=== PATIENT | male | born 1945 | race Caucasian/White ===

== ENCOUNTER 2018-06-19 14:34 | Inpatient (IN) | payer MEDICARE, OTHER ==
--- NOTE | 2018-06-19 15:12 | C.PDOC ---
History Of Present Illness 72 y/o male with PMHx of HTN, CVA, hypothyroidism, and myasthenia gravis, presents to the ED complaining of dizziness onset when waking up today. Patient reports feeling as if the room was spinning, and notes around 10:00am he lost h is balance and fell at home. Patient is now complaining of right rib pain. He denies any LOC, chest pain, SOB, palpitations, headache, visual changes, change in speech, focal weakness, numbness, or other injury. States he had a similar episode of room-spinning 2 days ago which resolved on its own. (+) blood thinner use, takes 81mg aspirin daily. Time Seen by Provider: 06/19/18 15:11 Chief Complaint (Nursing): Dizziness/Lightheaded History Per: Patient History/Exam Limitations: no limitations Onset/Duration Of Symptoms: Hrs Current Symptoms Are (Timing): Still Present Activity At Onset Of Symptoms: Standing Possible Causative Factor(s): Vertigo Fall Associated With With Symptoms: Yes, Positive Injury (right ribs) Past Medical History Reviewed: Historical Data, Nursing Documentation, Vital Signs Vital Signs: Last Vital Signs Temp 98 F 06/19/18 15:01 Pulse 115 H 06/19/18 15:01 Resp 22 06/19/18 15:01 BP 167/132 H 06/19/18 15:01 Pulse Ox 98 06/19/18 15:01 - Medical History PMH: CVA, HTN, Hypothyroidism Other PMH: Myasthenia Gravis Family History: States: No Known Family Hx - Social History Hx Tobacco Use: No Hx Alcohol Use: No Hx Substance Use: No Review Of Systems Constitutional: Negative for: Fever, Chills, Sweats Cardiovascular: Positive for: Other (Right rib pain). Negative for: Chest Pain, Palpitations Respiratory: Negative for: Shortness of Breath Gastrointestinal: Negative for: Nausea, Vomiting Musculoskeletal: Negative for: Neck Pain, Back Pain Skin: Negative for: Lesions, Bruising Neurological: Positive for: Dizziness (room-spinning). Negative for: Weakness, Numbness, Confusion, Altered Mental Status, Headache Physical Exam - Physical Exam Appears: Non-toxic, No Acute Distress Skin: Warm, Dry Head: Normacephalic Eye(s): bilateral: PERRL, EOMI, Other (Horizontal nystagmus, which fatigues) Ear(s): Bilateral: Normal Nose: Normal, No Septal Hematoma Oral Mucosa: Moist Tongue: Normal Appearing, No Laceration Lips: No Contusion Throat: Normal, No Erythema, No Exudate Neck: Trachea Midline, Supple, Other (No meningeal signs- negative kernig's and brudzinskis) Chest: Symmetrical, Tenderness (to right lateral ribs) Cardiovascular: Rhythm Regular, Other (No rub) Respiratory: No Rales, No Rhonchi, No Wheezing Gastrointestinal/Abdominal: Soft, Tenderness (over the RUQ), No Guarding, No Rebound Back: Normal Inspection, No CVA Tenderness, No Vertebral Tenderness Extremity: Bilateral: Atraumatic, Normal Color And Temperature Pulses: Left Dorsalis Pedis: Normal, Right Dorsalis Pedis: Normal Neurological/Psych: Oriented x3, Normal Speech, Normal Cognition, Normal Cranial Nerves, No Cerebellar Signs, Normal Motor, Normal Sensation, Other (Normal [id number]) Gait: Steady Extremity: Right: No Drift, Left: No Drift, Upper: No Drift, Lower: No Drift ED Course And Treatment - Laboratory Results Result Diagrams: 06/19/18 16:52 06/19/18 16:52 O2 Sat by Pulse Oximetry: 98 (RA) Pulse Ox Interpretation: Normal Medical Decision Making Medical Decision Making: Impression: 72 y/o M presents with c/o dizziness, x2d intermittently. No fall or trauma. No severed MOSQUEDA worst of life. No weakness or slurred speech. Pt notes vertigo with fall. On exam, normal cerebellar exam, BPV like exam: Horizontal nystagmus w/ fatigue. No indication of central vertigo at this time. Will seek CT given fall and R sided chest pain after fall. Will also seek NIF given pt has hx of MG. Pt notes MG is well controlled, and he denies any SOB or weakness at this time. Will continue to monitor. Plan: EKG Blood work CT C-spine CT Head CT Chest/Abd/Pelvis EKG: Sinus tachycardia at 116 bpm, no STEMI, PVCs CT Head: 1. There is generalized parenchymal atrophy noted as demonstrated by symmetrical dilatation of ventricles and sulci. 2. Chronic periventricular and subcortical microvascular disease is seen. 3. Left thalamic lacunar infarct is noted. 4. Mild forehead swelling is seen. 5. No acute intracranial pathology. CT C-spine: 1. No fracture or spondylolisthesis. 2. Straightening of cervical lordosis is seen, suggesting muscular spasm. 3. Multilevel spondylosis. 4. No fracture. CT Chest/Abd/Pelvis: 1. No evidence of acute pathology. Specifically, no evidence of rib fracture. 2. 3 mm subpleural nodule is present in the right upper lobe. Some additional tiny subpleural nodules present in the right lung. Several patchy opacities present in the left lung base that may represent posttraumatic atelectasis 3. The liver is enlarged especially the caudate lobe, markedly nodular and lobulated consistent with cirrhosis. Diffuse fatty infiltration with areas of fatty sparing. Vague area of hyperenhancement in comparison with remaining hepatic parenchyma and anterior segment of right hepatic lobe laterally which may represent vascular shunts. No definitive mass. Consider followup with MRI if clinically warranted. 4. Splenomegaly. 5. Several enlarged lymph nodes present, the largest measures 1.2 CM located in the epigastric region. Mild mesenteric infiltration present. 6. Prostate gland is moderately enlarged and contains calcifications. Please correlate with PSA levels. 7. Small umbilical hernia containing a small amount of fat and fluid. Small fat containing left inguinal hernia. 8. Numerous venous varicosities present within the abdomen. 2104 labs largely unremarkable Recurrent vertigo, lungs CTA: Per RN and Respiratory: No NIF machine available. Given Dizziness, moderately improved as well as no NIF measurement in ED will place patient in TELE. No indication for ICU at this time: pt states normal strength and is compliant with his MG meds at home per pt. On repeat exam he remains in NAD. Disposition - Disposition Disposition Time: 21:05 Condition: GOOD Forms: [facility] (Icelandic) - Clinical Impression Clinical Impression: Dizziness - Scribe Statement The provider has reviewed the documentation as recorded by the Scribe (Ijeoma Lugo) Provider Attestation: All medical record entries made by the Scribe were at my direction and personally dictated by me. I have reviewed the chart and agree that the record accurately reflects my personal performance of the history, physical exam, medical decision making, and the department course for this patient. I have also personally directed, reviewed, and agree with the discharge instructions and disposition.
[2018-06-19 17:14] LABS: BASO # 0.1 K/uL (0.0-0.2); BASO % 0.8 % (0.0-2.0); EOS # 0.1 K/uL (0.0-0.7); EOS % 1.4 % (0.0-4.0); HEMOGLOBIN 16.1 g/dL (12.0-18.0); LYMPH # 1.3 K/uL (1.0-4.3); LYMPH % 17.3 % (20.0-40.0); MEAN CELL VOLUME 76.4 fL (80.0-94.0); MEAN CORPUSCULAR HEMOGLOBIN 24.8 pg (27.0-31.0); MEAN CORPUSCULAR HGB CONC 32.5 g/dL (33.0-37.0); MEAN PLATELET VOLUME 10.7 fL (7.2-11.7); MONO # 0.7 K/uL (0.0-0.8); MONO % 9.6 % (0.0-10.0); NEUT # 5.2 K/uL (1.8-7.0); NEUT % 70.9 % (50.0-75.0); NRBC % 0.2 % (0.0-2.0); RBC 6.5 Mil/uL (4.40-5.90); WHITE BLOOD COUNT 7.4 K/uL (4.8-10.8)
[2018-06-19 17:17] LABS: ALB/GLOB RATIO 0.9 (1.0-2.1); ALBUMIN 3.8 g/dL (3.5-5.0); ALT/SGPT 37 U/L (21-72); AST/SGOT 44 U/L (17-59); BLOOD UREA NITROGEN 15 mg/dL (9-20); CALCIUM 9.1 mg/dl (8.6-10.4); GFR NON-AFRICAN AMERICAN > 60
[2018-06-19 17:22] LABS: INR 1.2; PROTHROMBIN TIME 13.2 SECONDS (9.7-12.2)
[2018-06-19 17:36] LABS: B-TYPE NATRIURETIC PEPTIDE 178 pg/mL (0-900)
[2018-06-19] MEDS ORDERED: Iodixanol 320 MG/ML 100 ML BOTTLE IV ONE (18:39)
[2018-06-19] MEDS ORDERED: Oxycodone/Acetaminophen 5/325 mg Tab PO ONE (19:20)
[2018-06-19] MEDS ORDERED: Sodium Chloride 0.9% 1,000 ML ONE (19:25)
[2018-06-19] MEDS: Sodium Chloride 0.9% 1,000 ML IV SCH (19:25)
[2018-06-19] MEDS ORDERED: Oxycodone/Acetaminophen 5/325 mg Tab ONE (19:25)
[2018-06-20] MEDS: Sodium Chloride 0.9% 1,000 ML IV SCH ×2 (01:02→13:51)
[2018-06-20] MEDS: Levothyroxine 50 MCG TAB PO SCH (07:04)
[2018-06-20] MEDS: Oxycodone/Acetaminophen 5/325 mg Tab PO PRN ×2 (07:04→14:06)
[2018-06-20 07:35] LABS: FREE T4 1.21 ng/dL (0.78-2.19)
[2018-06-20] MEDS: (Novolin R) Insulin Human Regular 100 units/ml vial SC SCH ×4 (08:44→21:57)
--- NOTE | 2018-06-20 11:55 | CP.PCM.HP ---
History of Present Illness - History of Present Illness History of Present Illness: pt came toed admited after he got up felt dizzy rested then got up fell on his r side chest wall hurts a lot Present on Admission - Present on Admission Any Indicators Present on Admission: No Review of Systems - Review of Systems Systems not reviewed;Unavailable: Acuity of Condition - Constitutional Constitutional: Excessive Sweating, Fatigue - EENT Eyes: As Per HPI Ears: As Per HPI Nose/Mouth/Throat: As Per HPI - Cardiovascular Cardiovascular: Lightheadedness - Respiratory Respiratory: Dyspnea on Exertion - Gastrointestinal Gastrointestinal: Nausea, Vomiting - Genitourinary Genitourinary: As Per HPI - Reproductive: Male Reproductive:Male: As Per HPI - Musculoskeletal Musculoskeletal: As Per HPI - Integumentary Integumentary: As Per HPI - Neurological Neurological: Dizziness, Syncope - Psychiatric Psychiatric: As Per HPI - Endocrine Endocrine: Polyuria Additional Comments: dm hypothyroid - Hematologic/Lymphatic Hematologic: As Per HPI Past Patient History - Past Medical History & Family History Past Medical History?: Yes - Past Social History Smoking Status: Never Smoked - CARDIAC Hx Hypertension: Yes - NEUROLOGICAL HX Cerebrovascular Accident: Yes - ENDOCRINE/METABOLIC Hx Hypothyroidism: Yes - MUSCULOSKELETAL/RHEUMATOLOGICAL Hx Falls: No - PSYCHIATRIC Hx Substance Use: No Meds Allergies/Adverse Reactions: Allergies Allergy/AdvReac Type Severity Reaction Status Date / Time No Known Allergies Allergy Verified 06/19/18 15:56 Physical Exam - Constitutional Appears: In Acute Distress - Head Exam Head Exam: ATRAUMATIC - Eye Exam Eye Exam: Normal appearance - ENT Exam ENT Exam: Mucous Membranes Moist - Neck Exam Neck exam: Positive for: Full Rom - Respiratory Exam Respiratory Exam: Decreased Breath Sounds Additional comments: tender chest wall - Cardiovascular Exam Cardiovascular Exam: REGULAR RHYTHM - GI/Abdominal Exam GI & Abdominal Exam: Normal Bowel Sounds - Rectal Exam Rectal Exam: Deferred - Extremities Exam Extremities exam: Positive for: normal inspection - Back Exam Back exam: NORMAL INSPECTION - Neurological Exam Neurological exam: Alert, Oriented x3 - Psychiatric Exam Psychiatric exam: Normal Mood - Skin Skin Exam: Normal Color Results - Vital Signs Recent Vital Signs: Last Vital Signs Temp 98.1 F 06/20/18 07:05 Pulse 90 06/20/18 07:45 Resp 18 06/20/18 07:05 BP 155/98 H 06/20/18 10:33 Pulse Ox 97 06/20/18 07:05 - Labs Result Diagrams: 06/19/18 16:52 06/19/18 16:52 Labs: Laboratory Results - last 24 hr 06/19/18 06/19/18 06/19/18 16:52 16:52 16:52 WBC 7.4 RBC 6.50 H Hgb 16.1 Hct 49.7 MCV 76.4 L MCH 24.8 L MCHC 32.5 L RDW 15.0 H Plt Count 157 MPV 10.7 Neut % (Auto) 70.9 Lymph % (Auto) 17.3 L Curry % (Auto) 9.6 Eos % (Auto) 1.4 Baso % (Auto) 0.8 Neut # (Auto) 5.2 Lymph # (Auto) 1.3 Curry # (Auto) 0.7 Eos # (Auto) 0.1 Baso # (Auto) 0.1 PT 13.2 H INR 1.2 APTT 34 Sodium 135 Potassium 4.4 Chloride 102 Carbon Dioxide 28 Anion Gap 10 BUN 15 Creatinine 0.7 L Est GFR ( Amer) > 60 Est GFR (Non-Af Amer) > 60 POC Glucose (mg/dL) Random Glucose 332 H Calcium 9.1 Magnesium 1.8 Total Bilirubin 1.0 AST 44 ALT 37 Alkaline Phosphatase 120 NT-Pro-B Natriuret Pep 178 Total Protein 8.1 Albumin 3.8 Globulin 4.3 H Albumin/Globulin Ratio 0.9 L 25-OH Vitamin D Total Free T4 TSH 3rd Generation 1.95 Blood Type Antibody Screen 06/19/18 06/20/18 06/20/18 16:52 06:02 06:51 WBC RBC Hgb Hct MCV MCH MCHC RDW Plt Count MPV Neut % (Auto) Lymph % (Auto) Curry % (Auto) Eos % (Auto) Baso % (Auto) Neut # (Auto) Lymph # (Auto) Curry # (Auto) Eos # (Auto) Baso # (Auto) PT INR APTT Sodium Potassium Chloride Carbon Dioxide Anion Gap BUN Creatinine Est GFR ( Amer) Est GFR (Non-Af Amer) POC Glucose (mg/dL) 226 H Random Glucose Calcium Magnesium Total Bilirubin AST ALT Alkaline Phosphatase NT-Pro-B Natriuret Pep Total Protein Albumin Globulin Albumin/Globulin Ratio 25-OH Vitamin D Total Free T4 1.21 TSH 3rd Generation 4.10 Blood Type AB POSITIVE Antibody Screen Negative 06/20/18 06:51 WBC RBC Hgb Hct MCV MCH MCHC RDW Plt Count MPV Neut % (Auto) Lymph % (Auto) Curry % (Auto) Eos % (Auto) Baso % (Auto) Neut # (Auto) Lymph # (Auto) Curry # (Auto) Eos # (Auto) Baso # (Auto) PT INR APTT Sodium Potassium Chloride Carbon Dioxide Anion Gap BUN Creatinine Est GFR ( Amer) Est GFR (Non-Af Amer) POC Glucose (mg/dL) Random Glucose Calcium Magnesium Total Bilirubin AST ALT Alkaline Phosphatase NT-Pro-B Natriuret Pep Total Protein Albumin Globulin Albumin/Globulin Ratio 25-OH Vitamin D Total 25.4 L Free T4 TSH 3rd Generation Blood Type Antibody Screen Assessment & Plan - Assessment and Plan (Free Text) Assessment: ac syncope vertigo vomiting hypothyroid itchy skin obesity dm lung infiltrate lung nodule Plan: as per orders - Date & Time Date: 06/20/18 Time: 11:59
--- NOTE | 2018-06-20 13:46 | CT ---
Date of service: 06/19/2018 PROCEDURE: CT HEAD WITHOUT CONTRAST. HISTORY: fall COMPARISON: None available. TECHNIQUE: Axial computed tomography images were obtained through the head/brain without intravenous contrast. Radiation dose: Total exam DLP = 1190.71 mGy-cm. This CT exam was performed using one or more of the following dose reduction techniques: Automated exposure control, adjustment of the mA and/or kV according to patient size, and/or use of iterative reconstruction technique. FINDINGS: HEMORRHAGE: No intracranial hemorrhage. BRAIN: Bilateral chronic lacunae are identified at the thalami and left internal capsule posterior limb. Mild expansion of the ventricular sulcal and cisternal spaces appreciated proportional to the ventricular volume and limited periventricular and centrum semiovale white matter lucency is appreciated compatible chronic microangiopathy. No mass effect throughout. VENTRICLES: Unremarkable. No hydrocephalus. CALVARIUM: No destructive bony lesion or displaced fracture identified including through the skullbase. Limited right frontal scalp edema or hematoma noted. PARANASAL SINUSES: Unremarkable as visualized. No significant inflammatory changes. MASTOID AIR CELLS: Unremarkable as visualized. No inflammatory changes. OTHER FINDINGS: None. IMPRESSION: Age-related neuro degenerative findings are appreciable as bilateral thalamic chronic lacunae and at the left internal capsule. No definite acute intracranial findings. No fracture, limited right frontal scalp edema/hematoma noted. Follow up CT or MRI are available as clinically warranted. Concordant preliminary report from [facility], 06/19/2018.
--- NOTE | 2018-06-20 13:49 | CT ---
Date of service: 06/19/2018 PROCEDURE: CT Cervical Spine without contrast HISTORY: fall COMPARISON: None available. TECHNIQUE: Axial computed tomography images were obtained of the cervical spine without the use of intravenous contrast. Coronal and sagittal reformatted images were created and reviewed. Radiation dose: Total exam DLP = 641.12 mGy-cm. This CT exam was performed using one or more of the following dose reduction techniques: Automated exposure control, adjustment of the mA and/or kV according to patient size, and/or use of iterative reconstruction technique. FINDINGS: VERTEBRAE: No fracture. Normal alignment. No destructive bony lesion. DISCS/SPINAL CANAL/NEURAL FORAMINA: No significant central canal or neural foraminal stenosis. Discs heights are grossly preserved. C6-7 spondylosis noted anteriorly. Mild multilevel facet joint degenerative changes noted diffusely. PARASPINAL SOFT TISSUES: Unremarkable. OTHER FINDINGS: None. IMPRESSION: No fracture or spondylolisthesis. No gross disc herniation or spinal stenosis identified. MRI is available for follow-up if clinically warranted.
[2018-06-20 17:00] VITALS: RESP 20
[2018-06-20] MEDS: Pantoprazole 40 mg EC Tab PO SCH (17:37)
--- NOTE | 2018-06-20 18:21 | CT ---
Date of service: 06/19/2018 PROCEDURE: CT Chest, Abdomen and Pelvis with intravenous contrast HISTORY: fall COMPARISON: None available. TECHNIQUE: Helical CT of the chest, abdomen pelvis was performed following intravenous contrast administration. Oral contrast not administered as per referring physician request reformatted dataset provided in multiple planes. IV dose administered: Visipaque 320, 100 cc Radiation dose: Total exam DLP = 1669.72 mGy-cm. This CT exam was performed using one or more of the following dose reduction techniques: Automated exposure control, adjustment of the mA and/or kV according to patient size, and/or use of iterative reconstruction technique. FINDINGS: CT CHEST WITH CONTRAST: LUNGS: Linear atelectasis or fibrosis seen at the left lower lobe inferiorly. No consolidation. 3 mm non calcified solid subpleural nodule right upper lobe. Central airways appear clear. MEDIASTINUM: Normal caliber aorta and pulmonary arterial trunk. No aortic dissection. There is cardiomegaly. No pulmonary vascular congestion.. LYMPH NODES: Unremarkable. PLEURA: Unremarkable. No pneumothorax. No pleural fluid. BONES: Unremarkable. OTHER FINDINGS: None. CT ABDOMEN AND PELVIS: LIVER: Punctate hepatic granuloma seen the dome. Nodular surface of the liver suggests cirrhosis with borderline enlargement. Diffuse fatty infiltration is manifest by heterogeneous lucency throughout the liver. No definitive hepatic mass identified or intrahepatic biliary dilatation. GALLBLADDER AND BILE DUCTS: Unremarkable. PANCREAS: Unremarkable. No gross lesion or ductal dilatation. SPLEEN: Spleen is enlarged to 14.5 cm. ADRENALS: Unremarkable. No mass. KIDNEYS AND URETERS: No hydronephrosis or radiodense urolithiasis bilaterally. 1.2 cm simple cyst seen related to the upper pole right kidney. No solid mass is seen bilaterally or left renal cyst. Kidneys appear normal in size bilaterally. VASCULATURE: Calcific atherosclerotic abdominal aortic changes are identified without aneurysm. Limited gastroesophageal varices are identified however prominence splenorenal varices are present and minimal gastrohepatic ligament varices are noted. BOWEL: The stomach is collapsed not well evaluated. No bowel obstruction is identified. [id number] fecal loading is scattered throughout various large-bowel segments no bowel obstruction or mesenteric edema associated with any bowel loop. APPENDIX: Not identified possibly status post prior appendectomy. Clinically correlate. No CT evidence of appendicitis. PERITONEUM: There is a tiny umbilical hernia contains only fat with the peritoneum otherwise unremarkable no ascites or free intra peritoneal gas collection. No reactive mesenteric changes. LYMPH NODES: No suspicious lymphadenopathy. BLADDER: Unremarkable. REPRODUCTIVE: Enlarged prostate gland. BONES: No acute fracture. OTHER FINDINGS: None. IMPRESSION: 1. No definite acute chest, abdomen or pelvic findings including fracture. 2. 3 mm subpleural nodule right upper lobe. 3. Cardiomegaly. Linear atelectasis or fibrosis left lower lobe. 4. Cirrhotic fatty liver, borderline enlarged. Splenomegaly. Extensive splenorenal varices with minimal esophageal and gastrohepatic ligament varices identified. 5. Small cyst upper pole right kidney. 6. Enlarged prostate gland. Concordant preliminary report from [facility], 06/19/2018.
--- NOTE | 2018-06-21 01:21 | CON ---
DATE: 06/20/2018 REASON FOR CONSULTATION: Dizziness. REQUESTING PHYSICIAN: Tong Addison MD HISTORY OF PRESENT ILLNESS: This is a 72-year-old male with multiple-day history of dizziness on and off, lasting one minute upon standing. Dizziness is moderate in intensity. There is no hearing loss. No ringing in the ear. The patient complains of ear itching on both ears, constant, mild, for days, no pain. PAST MEDICAL HISTORY: As noted in the chart by me. MEDICATIONS: As noted in the chart by me. ALLERGIES: NOTED IN THE CHART BY ME. PHYSICAL EXAMINATION: HEAD: Atraumatic and normocephalic. FACE: Good facial movements bilaterally. CONSTITUTIONAL: Well fed, well nourished. COMMUNICATION: Communicates well and appropriately. EXTERNAL NOSE AND EARS: No masses. No lesions. No erythema. No edema. INTERNAL NOSE AND EARS: Deviated septum. No masses. No lesions. No erythema. No edema. ORAL CAVITY AND OROPHARYNX: No masses. No lesions. No erythema. No edema. LIPS AND GUMS: No masses. No lesions. No erythema. No edema. NECK: Supple. THYROID: No thyromegaly. No goiter. LYMPH NODES: No lymphadenopathy of the neck. ASSESSMENT: 1. Dizziness. 2. Deviated septum. PLAN: Continue meclizine. When the patient is okay to ambulate safely and to take p.o., can be discharged home. Recommend ear drops with steroids for ear itching. ear itching. The patient should follow up as an outpatient and to be scheduled for a VNG. Jose Rain MD
[2018-06-21] MEDS: Levothyroxine 50 MCG TAB PO SCH (06:40)
[2018-06-21] MEDS: (Novolin R) Insulin Human Regular 100 units/ml vial SC SCH ×4 (07:45→21:11)
[2018-06-21 07:50] LABS: BASO # 0.1 K/uL (0.0-0.2); BASO % 1.1 % (0.0-2.0); EOS # 0.2 K/uL (0.0-0.7); EOS % 2.8 % (0.0-4.0); HEMOGLOBIN 16.1 g/dL (12.0-18.0); LYMPH # 1.6 K/uL (1.0-4.3); LYMPH % 19.1 % (20.0-40.0); MEAN CELL VOLUME 76.3 fL (80.0-94.0); MEAN CORPUSCULAR HEMOGLOBIN 25.3 pg (27.0-31.0); MEAN CORPUSCULAR HGB CONC 33.2 g/dL (33.0-37.0); MEAN PLATELET VOLUME 11.1 fL (7.2-11.7); MONO # 0.9 K/uL (0.0-0.8); NEUT # 5.4 K/uL (1.8-7.0); NRBC % 0.1 % (0.0-2.0); RBC 6.35 Mil/uL (4.40-5.90); RED CELL DISTRIBUTION WIDTH 15.2 % (11.5-14.5); WHITE BLOOD COUNT 8.2 K/uL (4.8-10.8)
[2018-06-21 08:12] LABS: ALB/GLOB RATIO 0.8 (1.0-2.1); ALBUMIN 3.5 g/dL (3.5-5.0); ALT/SGPT 34 U/L (21-72); AST/SGOT 27 U/L (17-59); BLOOD UREA NITROGEN 13 mg/dL (9-20); CALCIUM 8.7 mg/dl (8.6-10.4); GFR NON-AFRICAN AMERICAN > 60
--- NOTE | 2018-06-21 10:37 | CP.PCM.PN ---
Subjective - Date & Time of Evaluation Date of Evaluation: 06/21/18 Time of Evaluation: 10:33 - Subjective Subjective: pt still in severe pain when he moves r side ribs hurts from the fall Objective - Vital Signs/Intake and Output Vital Signs (last 24 hours): Temp Pulse Resp BP Pulse Ox 98.2 F 80 20 171/105 H 98 06/21/18 07:00 06/21/18 07:50 06/21/18 07:00 06/21/18 07:00 06/21/18 07:00 Intake and Output: 06/21/18 06/21/18 06:59 18:59 Intake Total Balance - Medications Medications: Current Medications Amlodipine Besylate (Norvasc) 5 mg PO DAILY [facility] Last Admin: 06/20/18 10:34 Dose: 5 mg Aspirin (Ecotrin) 81 mg PO DAILY [facility] Last Admin: 06/20/18 10:33 Dose: 81 mg Carvedilol (Coreg) 12.5 mg PO BID [facility] Last Admin: 06/20/18 18:01 Dose: 12.5 mg Cyanocobalamin (Vitamin B12 1000 Mcg Tab) 1,000 mcg PO DAILY [facility] Last Admin: 06/20/18 10:45 Dose: 1,000 mcg Doxazosin Mesylate (Cardura) 8 mg PO DAILY [facility] Sodium Chloride (Sodium Chloride 0.9%) 1,000 mls @ 100 mls/hr IV .Q10H [facility] Last Admin: 06/20/18 13:51 Dose: 100 mls/hr Insulin Human Regular (Novolin R) 0 unit SC ACHS [facility]; Protocol Last Admin: 06/21/18 07:45 Dose: 2 units Levothyroxine Sodium (Synthroid) 50 mcg PO 0630 [facility] Last Admin: 06/21/18 06:40 Dose: 50 mcg Loratadine (Claritin) 10 mg PO DAILY [facility] Last Admin: 06/20/18 12:30 Dose: 10 mg Losartan Potassium (Cozaar) 100 mg PO DAILY [facility] Last Admin: 06/20/18 10:34 Dose: 100 mg Meclizine HCl (Antivert) 12.5 mg PO DAILY [facility] Mycophenolate Mofetil (Cellcept) 500 mg PO DAILY [facility] Last Admin: 06/20/18 11:01 Dose: 500 mg Oxycodone/Acetaminophen (Percocet 5/325 Mg Tab) 1 tab PO Q6H PRN PRN Reason: Pain, moderate (4-7) Stop: 06/23/18 06:18 Last Admin: 06/20/18 14:06 Dose: 1 tab Pantoprazole Sodium (Protonix Ec Tab) 40 mg PO ACS [facility] Last Admin: 06/20/18 17:37 Dose: 40 mg Pyridostigmine Fingal (Mestinon Tab) 60 mg PO TID [facility] Last Admin: 06/20/18 18:00 Dose: 60 mg Sitagliptin Phosphate (Januvia) 100 mg PO DAILY [facility] Last Admin: 06/20/18 10:33 Dose: 100 mg - Labs Labs: 06/21/18 07:34 06/21/18 07:34 PT 13.2 SECONDS (9.7-12.2) H 06/19/18 16:52 INR 1.2 06/19/18 16:52 APTT 34 SECONDS (21-34) 06/19/18 16:52 - Constitutional Appears: Non-toxic - Head Exam Head Exam: NORMAL INSPECTION - Eye Exam Eye Exam: Normal appearance Pupil Exam: NORMAL ACCOMODATION - Neck Exam Neck Exam: Full ROM - Respiratory Exam Respiratory Exam: Decreased Breath Sounds - Cardiovascular Exam Cardiovascular Exam: REGULAR RHYTHM - GI/Abdominal Exam GI & Abdominal Exam: Normal Bowel Sounds, Organomegaly Additional comments: liver enlarged tender - Extremities Exam Extremities Exam: Normal Inspection - Back Exam Back Exam: NORMAL INSPECTION - Neurological Exam Neurological Exam: Alert, Oriented x3 - Psychiatric Exam Psychiatric exam: Normal Mood - Skin Skin Exam: Dry Assessment and Plan - Assessment and Plan (Free Text) Assessment: dizziness fals lung nodule patchy infiltrate lung fatty liver Plan: as per orders
[2018-06-21] MEDS: Sodium Chloride 0.9% 1,000 ML IV SCH ×2 (11:00→12:00)
[2018-06-21] MEDS: Oxycodone/Acetaminophen 5/325 mg Tab PO PRN ×2 (13:12→20:24)
[2018-06-21] MEDS: Pantoprazole 40 mg EC Tab PO SCH (17:30)
[2018-06-22] MEDS: Sodium Chloride 0.9% 1,000 ML IV SCH ×3 (04:18→20:31)
[2018-06-22] MEDS: Oxycodone/Acetaminophen 5/325 mg Tab PO PRN ×2 (05:36→17:48)
[2018-06-22] MEDS: Levothyroxine 50 MCG TAB PO SCH (05:37)
[2018-06-22] MEDS: (Novolin R) Insulin Human Regular 100 units/ml vial SC SCH ×4 (08:29→22:41)
--- NOTE | 2018-06-22 12:11 | CARD ---
APPROVED REPORT Date of service: 06/19/2018 EKG Measurement Heart [id number] <Conclusion> Sinus tachycardia with occasional premature ventricular complexes Left axis deviation Minimal voltage criteria for LVH, may be normal variant Abnormal ECG
[2018-06-22] MEDS: Neomycin/Polymyxin/Hydrocort Otic Soln BOTTLE AU SCH ×3 (14:35→22:41)
[2018-06-22] MEDS: Pantoprazole 40 mg EC Tab PO SCH (17:47)
--- NOTE | 2018-06-22 18:29 | CP.PCM.PN ---
Subjective - Date & Time of Evaluation Date of Evaluation: 06/22/18 Time of Evaluation: 18:26 - Subjective Subjective: pt in pain chest wall and kneesdifficulty ambulating Objective - Vital Signs/Intake and Output Vital Signs (last 24 hours): Temp Pulse Resp BP Pulse Ox 97.9 F 86 20 128/86 94 L 06/22/18 07:00 06/22/18 07:34 06/22/18 07:00 06/22/18 17:47 06/22/18 07:00 Intake and Output: 06/22/18 06/22/18 06:59 18:59 Intake Total 1050 Output Total 400 Balance 650 - Medications Medications: Current Medications Amlodipine Besylate (Norvasc) 5 mg PO DAILY [facility] Last Admin: 06/22/18 10:12 Dose: 5 mg Aspirin (Ecotrin) 81 mg PO DAILY [facility] Last Admin: 06/22/18 10:12 Dose: 81 mg Carvedilol (Coreg) 12.5 mg PO BID [facility] Last Admin: 06/22/18 17:47 Dose: 12.5 mg Cyanocobalamin (Vitamin B12 1000 Mcg Tab) 1,000 mcg PO DAILY [facility] Last Admin: 06/22/18 10:11 Dose: 1,000 mcg Doxazosin Mesylate (Cardura) 8 mg PO DAILY [facility] Last Admin: 06/22/18 11:02 Dose: 8 mg Sodium Chloride (Sodium Chloride 0.9%) 1,000 mls @ 100 mls/hr IV .Q10H [facility] Last Admin: 06/22/18 07:30 Dose: Not Given Insulin Human Regular (Novolin R) 0 unit SC [facility]; Protocol Last Admin: 06/22/18 17:50 Dose: 3 units Levothyroxine Sodium (Synthroid) 50 mcg PO 0630 [facility] Last Admin: 06/22/18 05:37 Dose: 50 mcg Loratadine (Claritin) 10 mg PO DAILY [facility] Last Admin: 06/22/18 10:12 Dose: 10 mg Losartan Potassium (Cozaar) 100 mg PO DAILY [facility] Last Admin: 06/22/18 10:12 Dose: 100 mg Meclizine HCl (Antivert) 12.5 mg PO DAILY [facility] Last Admin: 06/22/18 10:13 Dose: 12.5 mg Metformin HCl (Glucophage Xr) 1,000 mg PO [facility] Mycophenolate Mofetil (Cellcept) 500 mg PO DAILY [facility] Last Admin: 06/22/18 10:11 Dose: 500 mg Neomycin/Polymyxin/Hydrocortisone (Cortisporin Otic Soln) 4 drop AU QID [facility] Last Admin: 06/22/18 17:50 Dose: 4 drop Oxycodone/Acetaminophen (Percocet 5/325 Mg Tab) 1 tab PO Q6H PRN PRN Reason: Pain, moderate (4-7) Stop: 06/23/18 06:18 Last Admin: 06/22/18 17:48 Dose: 1 tab Pantoprazole Sodium (Protonix Ec Tab) 40 mg PO ACS [facility] Last Admin: 06/22/18 17:47 Dose: 40 mg Pyridostigmine [place] (Mestinon Tab) 60 mg PO TID [facility] Last Admin: 06/22/18 17:48 Dose: 60 mg Sitagliptin Phosphate (Januvia) 100 mg PO DAILY [facility] Last Admin: 06/22/18 10:12 Dose: 100 mg - Labs Labs: 06/21/18 07:34 06/21/18 07:34 PT 13.2 SECONDS (9.7-12.2) H 06/19/18 16:52 INR 1.2 06/19/18 16:52 APTT 34 SECONDS (21-34) 06/19/18 16:52 - Constitutional Appears: Non-toxic - Head Exam Head Exam: NORMAL INSPECTION - Eye Exam Eye Exam: Normal appearance Pupil Exam: NORMAL ACCOMODATION - ENT Exam ENT Exam: Mucous Membranes Moist - Neck Exam Neck Exam: Normal Inspection - Respiratory Exam Respiratory Exam: Clear to Ausculation Bilateral Additional comments: tender chest wall - Cardiovascular Exam Cardiovascular Exam: REGULAR RHYTHM - GI/Abdominal Exam GI & Abdominal Exam: Normal Bowel Sounds - Exam Exam: NORMAL INSPECTION - Extremities Exam Extremities Exam: Normal Inspection - Back Exam Back Exam: NORMAL INSPECTION - Neurological Exam Neurological Exam: Alert, Oriented x3 - Psychiatric Exam Psychiatric exam: Normal Affect - Skin Skin Exam: Normal Color Assessment and Plan - Assessment and Plan (Free Text) Assessment: s/p fall chest wall trauma knee pain Plan: pt and arange for rehab
[2018-06-23] MEDS: Levothyroxine 50 MCG TAB PO SCH (06:26)
[2018-06-23 08:07] VITALS: O2SAT 97
[2018-06-23] MEDS: (Novolin R) Insulin Human Regular 100 units/ml vial SC SCH ×4 (08:21→21:35)
--- NOTE | 2018-06-23 09:48 | CP.PCM.PN ---
Subjective - Date & Time of Evaluation Date of Evaluation: 06/23/18 Time of Evaluation: 09:45 - Subjective Subjective: pt still has alot of pain chest wall and knees Objective - Vital Signs/Intake and Output Vital Signs (last 24 hours): Temp Pulse Resp BP Pulse Ox 98.2 F 75 20 158/76 H 97 06/23/18 07:00 06/23/18 07:00 06/23/18 07:00 06/23/18 07:00 06/23/18 07:00 - Medications Medications: Current Medications Amlodipine Besylate (Norvasc) 5 mg PO DAILY [facility] Last Admin: 06/22/18 10:12 Dose: 5 mg Aspirin (Ecotrin) 81 mg PO DAILY [facility] Last Admin: 06/22/18 10:12 Dose: 81 mg Carvedilol (Coreg) 12.5 mg PO BID [facility] Last Admin: 06/22/18 17:47 Dose: 12.5 mg Cyanocobalamin (Vitamin B12 1000 Mcg Tab) 1,000 mcg PO DAILY [facility] Last Admin: 06/22/18 10:11 Dose: 1,000 mcg Doxazosin Mesylate (Cardura) 8 mg PO DAILY [facility] Last Admin: 06/22/18 11:02 Dose: 8 mg Glimepiride (Amaryl) 1 mg PO DAILY [facility] Insulin Human Regular (Novolin R) 0 unit SC [facility]; Protocol Last Admin: 06/23/18 08:21 Dose: 2 units Levothyroxine Sodium (Synthroid) 50 mcg PO 0630 [facility] Last Admin: 06/23/18 06:26 Dose: 50 mcg Loratadine (Claritin) 10 mg PO DAILY [facility] Last Admin: 06/22/18 10:12 Dose: 10 mg Losartan Potassium (Cozaar) 100 mg PO DAILY [facility] Last Admin: 06/22/18 10:12 Dose: 100 mg Meclizine HCl (Antivert) 12.5 mg PO DAILY [facility] Last Admin: 06/22/18 10:13 Dose: 12.5 mg Metformin HCl (Glucophage Xr) 1,000 mg PO PCS [facility] Last Admin: 06/22/18 20:32 Dose: 1,000 mg Mycophenolate Mofetil (Cellcept) 500 mg PO DAILY [facility] Last Admin: 06/22/18 10:11 Dose: 500 mg Neomycin/Polymyxin/Hydrocortisone (Cortisporin Otic Soln) 4 drop AU QID [facility] Last Admin: 06/22/18 22:41 Dose: 4 drop Pantoprazole Sodium (Protonix Ec Tab) 40 mg PO ACS [facility] Last Admin: 06/22/18 17:47 Dose: 40 mg Pyridostigmine [place] (Mestinon Tab) 60 mg PO TID [facility] Last Admin: 06/22/18 17:48 Dose: 60 mg Sitagliptin Phosphate (Januvia) 100 mg PO DAILY [facility] Last Admin: 06/22/18 10:12 Dose: 100 mg - Labs Labs: 06/21/18 07:34 06/21/18 07:34 PT 13.2 SECONDS (9.7-12.2) H 06/19/18 16:52 INR 1.2 06/19/18 16:52 APTT 34 SECONDS (21-34) 06/19/18 16:52 - Constitutional Appears: Non-toxic - Head Exam Head Exam: NORMOCEPHALIC - Eye Exam Eye Exam: EOMI, PERRL Pupil Exam: NORMAL ACCOMODATION - ENT Exam ENT Exam: Mucous Membranes Moist - Respiratory Exam Respiratory Exam: NORMAL BREATHING PATTERN - Cardiovascular Exam Cardiovascular Exam: REGULAR RHYTHM - GI/Abdominal Exam GI & Abdominal Exam: Normal Bowel Sounds - Extremities Exam Additional comments: knee pain - Back Exam Back Exam: NORMAL INSPECTION - Skin Skin Exam: Normal Color Assessment and Plan - Assessment and Plan (Free Text) Assessment: s/p fall morbid obesity chest wall contusion arthritis dificulty ambulating Plan: as per orders await rehab
[2018-06-23] MEDS: Neomycin/Polymyxin/Hydrocort Otic Soln BOTTLE AU SCH ×4 (09:49→22:16)
--- NOTE | 2018-06-23 10:04 | CON ---
DATE: 06/22/2018 HISTORY OF PRESENT ILLNESS: A 72-year-old man, history of myasthenia, diabetes, been having dizziness, syncope, and confusion. The patient's repeat CAT scan showed a 3 mm nodule of the right upper lobe. The patient denies any pulmonary issue, supposed to have a CAT scan done in . PHYSICAL EXAMINATION: GENERAL: The patient is awake, alert, and oriented. VITAL SIGNS: Temperature 98, pulse 90. HEENT: Within normal limits. NECK: Supple. CHEST: Symmetrical. HEART: Regular. ABDOMEN: Soft. EXTREMITIES: No edema. IMPRESSION: The patient suffers from fall, dizziness, syncope. more than 20 years ago. At this point, one should repeat the CAT scan unavailable ____ CAT scan in 1 year. Rogelio Spears MD
[2018-06-23] MEDS ORDERED: Lidocaine Hydrochloride 5 ML INJ ONE (10:19)
--- NOTE | 2018-06-23 15:21 | CARD ---
APPROVED REPORT Date of service: 06/20/2018 EKG Measurement Heart [id number] <Conclusion> Sinus rhythm with premature supraventricular complexes and with occasional premature ventricular complexes Left axis deviation Minimal voltage criteria for LVH, may be normal variant Abnormal ECG
[2018-06-23 16:26] VITALS: BP 141/83; PULSE 77; TEMP 98.6
[2018-06-23] MEDS: Pantoprazole 40 mg EC Tab PO SCH (17:48)
--- NOTE | 2018-06-23 18:47 | CP.PCM.PN ---
Objective - Vital Signs/Intake and Output Vital Signs (last 24 hours): Temp Pulse Resp BP Pulse Ox 98.6 F 77 20 141/83 97 06/23/18 15:00 06/23/18 15:00 06/23/18 15:00 06/23/18 17:48 06/23/18 15:00 Intake and Output: 06/23/18 06/23/18 06:59 18:59 Intake Total 450 Output Total 750 Balance -300 - Medications Medications: Current Medications Amlodipine Besylate (Norvasc) 5 mg PO DAILY [facility] Last Admin: 06/23/18 09:49 Dose: 5 mg Aspirin (Ecotrin) 81 mg PO DAILY [facility] Last Admin: 06/23/18 09:49 Dose: 81 mg Carvedilol (Coreg) 12.5 mg PO BID [facility] Last Admin: 06/23/18 17:48 Dose: 12.5 mg Cyanocobalamin (Vitamin B12 1000 Mcg Tab) 1,000 mcg PO DAILY [facility] Last Admin: 06/23/18 11:12 Dose: 1,000 mcg Doxazosin Mesylate (Cardura) 8 mg PO DAILY [facility] Last Admin: 06/23/18 09:48 Dose: 8 mg Glimepiride (Amaryl) 1 mg PO ACB [facility] Last Admin: 06/23/18 11:45 Dose: 1 mg Insulin Human Regular (Novolin R) 0 unit SC [facility]; Protocol Last Admin: 06/23/18 17:50 Dose: 2 units Levothyroxine Sodium (Synthroid) 50 mcg PO 0630 [facility] Last Admin: 06/23/18 06:26 Dose: 50 mcg Loratadine (Claritin) 10 mg PO DAILY [facility] Last Admin: 06/23/18 09:49 Dose: 10 mg Losartan Potassium (Cozaar) 100 mg PO DAILY [facility] Last Admin: 06/23/18 09:49 Dose: 100 mg Meclizine HCl (Antivert) 12.5 mg PO DAILY [facility] Last Admin: 06/23/18 09:49 Dose: 12.5 mg Metformin HCl (Glucophage Xr) 1,000 mg PO PCS [facility] Last Admin: 06/23/18 17:49 Dose: 1,000 mg Mycophenolate Mofetil (Cellcept) 500 mg PO DAILY [facility] Last Admin: 06/23/18 09:49 Dose: 500 mg Neomycin/Polymyxin/Hydrocortisone (Cortisporin Otic Soln) 4 drop AU QID [facility] Last Admin: 06/23/18 17:50 Dose: 4 drop Pantoprazole Sodium (Protonix Ec Tab) 40 mg PO ACS [facility] Last Admin: 06/23/18 17:48 Dose: 40 mg Pyridostigmine [place] (Mestinon Tab) 60 mg PO TID [facility] Last Admin: 06/23/18 17:49 Dose: 60 mg Sitagliptin Phosphate (Januvia) 100 mg PO DAILY [facility] Last Admin: 06/23/18 09:48 Dose: 100 mg - Labs Labs: 06/21/18 07:34 06/21/18 07:34 PT 13.2 SECONDS (9.7-12.2) H 06/19/18 16:52 INR 1.2 06/19/18 16:52 APTT 34 SECONDS (21-34) 06/19/18 16:52 Assessment and Plan - Assessment and Plan (Free Text) Assessment: 72 year old male admitted with dizziness, h/o cva, myasthenia gravis, cleared by DR Rain. Discussed with DR Valencia, [facility]
== END 2018-06-23 23:07 | DRG 312 ==
LOC: C.ER 14:34 → C.6T 21:03
PROVIDERS: ADMIT Internal Medicine; ATTEND Internal Medicine
DX: R55 Syncope and collapse (principal); R42 Dizziness and giddiness; R07.81 Pleurodynia; S20.219A Contusion of unspecified front wall of thorax, initial encounter; G70.00 Myasthenia gravis without (acute) exacerbation; E03.9 Hypothyroidism, unspecified; E11.9 Type 2 diabetes mellitus without complications; I10 Essential (primary) hypertension; J34.2 Deviated nasal septum; K76.0 Fatty (change of) liver, not elsewhere classified; W19.XXXA Unspecified fall, initial encounter; M19.90 Unspecified osteoarthritis, unspecified site; R11.10 Vomiting, unspecified; R91.8 Other nonspecific abnormal finding of lung field; H55.09 Other forms of nystagmus; R53.83 Other fatigue; E66.9 Obesity, unspecified; Z68.31 Body mass index [BMI] 31.0-31.9, adult; Y92.009 Unspecified place in unspecified non-institutional (private) residence as the place of occurrence of the external cause; Z86.73 Personal history of transient ischemic attack (TIA), and cerebral infarction without residual deficits; Z79.82 Long term (current) use of aspirin